=== PATIENT | female | born 1940 ===

== ENCOUNTER 2017-10-14 12:08 | Outpatient (CLI) | payer OTHER ==
[~2017-10-14] VITALS: Ht 160 cm; Wt 60.8 kg
== END 2017-10-14 12:20 | disposition home or self-care (01) ==
LOC: OFIC 805 12:08
DX: H61.22 Impacted cerumen, left ear (principal); H90.42 Sensorineural hearing loss, unilateral, left ear, with unrestricted hearing on the contralateral side

== ENCOUNTER 2017-10-28 08:13 | Outpatient (CLI) | payer OTHER ==
[~2017-10-28] VITALS: Ht 152.4 cm; Wt 60.8 kg
== END 2017-10-28 08:30 | disposition home or self-care (01) ==
LOC: OFIC 805 08:13
DX: H90.3 Sensorineural hearing loss, bilateral (principal); H61.23 Impacted cerumen, bilateral

== ENCOUNTER 2019-12-03 13:04 | Outpatient (CLI) | payer OTHER | END 2019-12-03 16:31 | disposition home or self-care (01) | LOC: OFIC 805 13:04 | PROVIDERS: ATTEND Otolaryngology | DX: H93.8X2 Other specified disorders of left ear (principal); H90.3 Sensorineural hearing loss, bilateral; H61.22 Impacted cerumen, left ear ==

== ENCOUNTER 2020-01-12 09:53 | Outpatient (CLI) | payer OTHER | END 2020-01-12 17:15 | disposition home or self-care (01) | LOC: OFIC 805 09:53 | PROVIDERS: ATTEND Otolaryngology | DX: H93.8X1 Other specified disorders of right ear (principal); H61.23 Impacted cerumen, bilateral; H90.3 Sensorineural hearing loss, bilateral ==